=== PATIENT | female | born 1985 | race Caucasian/White ===

== ENCOUNTER → 2016-07-01 | Outpatient (REF) | payer OTHER ==
[~2016-07-01] MED LIST: LABE20TAB PO; PREN1TAB11 PO
== END ==
LOC: M LAB REF 16:22
PROVIDERS: ATTEND Neurological Surgery
DX: Z01.818 Encounter for other preprocedural examination (principal)

== ENCOUNTER → 2016-07-13 | Outpatient (CLI) | payer OTHER ==
[2016-07-13 11:12] LABS: INR 1.05
[2016-07-13 11:15] LABS: BASO % 0.7 % (0.0-1.0); EOS % 0.9 % (0.0-3.0); LARGE UNSTAINED CELL # 0.1 K/mm3 (0.0-0.4); LARGE UNSTAINED CELL % 1.6 % (0.0-4.0); LYMPH % 17.8 % (24.0-44.0); MEAN CORPUSCULAR HEMOGLOBIN 32.2 pg (27.0-33.0); MEAN CORPUSCULAR HGB CONC 34.4 g/dl (32.0-36.5); MEAN CORPUSCULAR VOLUME 93.6 fl (80.0-96.0); MONO # 0.4 K/mm3 (0.0-0.8); MONO % 7.3 % (0.0-5.0); NEUTROPHILS # 3.6 K/mm3 (1.8-7.7); NEUTROPHILS % 71.7 % (36.0-66.0); PLATELET COUNT, AUTOMATED 218 k/mm3 (150-450); RED CELL DISTRIBUTION WIDTH 12.8 % (11.5-14.5)
[2016-07-13 11:21] LABS: ALBUMIN 4.2 GM/DL (3.2-5.2); ALBUMIN/GLOBULIN RATIO 1.56 (1.00-1.93); ALKALINE PHOSPHATASE 42 U/L (45-117); ALT/SGPT 18 U/L (12-78); ANION GAP 7 MEQ/L (8-16); AST/SGOT 9 U/L (15-37); BILIRUBIN,TOTAL 0.6 MG/DL (0.2-1.0); BLOOD UREA NITROGEN 19 MG/DL (7-18); CARBON DIOXIDE LEVEL 29 MEQ/L (21-32); CHLORIDE LEVEL 103 MEQ/L (98-107); CREATININE FOR GFR 0.67 MG/DL (0.55-1.02); GLOMERULAR FILTRATION RATE > 60.0 (>60); GLUCOSE, FASTING 92 MG/DL (70-105); POTASSIUM SERUM 4.4 MEQ/L (3.5-5.1); SODIUM LEVEL 139 MEQ/L (136-145); TOTAL PROTEIN 6.9 GM/DL (6.4-8.2)
--- NOTE | 2016-07-14 02:58 | REP ---
Clinical: Preoperative assessment . Comparison: None . Technique: PA and lateral. Findings: The mediastinum and cardiac silhouette are normal. The lung ni are clear and without acute consolidation, effusion, or pneumothorax. The skeletal structures are intact and normal. Impression: 1. No acute cardiopulmonary process. Signed by Antolin Braden MD 07/14/2016 02:50 A
--- NOTE | 2016-07-14 18:33 | ECGEPIP ---
Stationary ECG Study [facility] Test Date: 2016-07-13 Pat Name: DAVIDE CLINE Department: Room: - Gender: F Cotton Tier: HARINI : 1985 Requested By: SHANNAN Sanders Order Number: [id number] Reading MD: Reid Bowie Measurements Intervals [place] Rate: 83 P: 9 OK: 151 QRS: 20 QRSD: 85 T: 36 QT: 358 QTc: 423 Interpretive Statements SINUS RHYTHM NO PRIOR TRACING Electronically Signed On 07-14-2016 18:32:45 EDT by Reid Bowie
== END ==
LOC: M LAB 10:08
PROVIDERS: ATTEND Neurological Surgery
DX: Z01.818 Encounter for other preprocedural examination (principal)

== ENCOUNTER → 2016-08-03 | Day surgery (SDC) | payer OTHER ==
[~2016-08-03] VITALS: Ht 160 cm; Wt 65.8 kg
[~2016-08-03] MED LIST changes: +BACITRACIN PWD 50,000 UNITS VIAL As Ordered ONE; +LIDOCAINE W/EPINEPHRINE 1% 20ML VIAL As Ordered ONE; +LR 1,000 ML IV SCH; +MIDAZOLAM INJ 2 MG/2 ML VIAL (J2250) As Ordered ONE; +MUCI600T34 PO; +NORCO, ANEXSIA 5/325MG TABLET (HYDROcodone/ACETAMINOPHEN) PO PRN; +ONDANSETRON 4MG/2ML VIAL (J2405) IV PRN; +PHENYLephrine HCL 500 MCG/5 ML (100MCG/ML) SYRINGE (J2370) As Ordered ONE; +PROPOFOL 200 MG/20 ML VIAL As Ordered ONE; +ZEST1TAB PO; +dexameTHASONE 4 MG/ML 1ML VIAL (J1100) IV ONE; +fentaNYL 100 MCG/2 ML INJECTION (J3010) As Ordered ONE; +fentaNYL 100 MCG/2 ML INJECTION (J3010) IV PRN; +methylPREDNISolone SUSP 40 MG/ML (DEPO-medrol) VIAL (J1030) As Ordered ONE
[2016-08-03 10:45] VITALS: BP 129/82
--- NOTE | 2016-08-04 09:05 | RO ---
DATE OF PROCEDURE: 08/03/2016 PREOPERATIVE DIAGNOSES: Left occipital mass/neurofibroma, occipital neuralgia. POSTPROCEDURE DIAGNOSES: Left occipital mass/neurofibroma, occipital neuralgia. PROCEDURE: Resection of left occipital mass, decompression of greater and lesser occipital nerves, distal greater occipital neurectomy. SURGEON: Dr. Lai Francis PARTS IDENTIFIER: None. ANESTHESIA: Local and paracentesis occipital block performed by myself and conscious sedation. FINDINGS: Please see office notes for detailed preoperative evaluation and discussions. 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 The lesion of interest today was in the left occipital region near the superior nuchal line at the lateral border of the trapezius. I has been causing severe relentless headaches and occipital neuralgia. Patient and her were seen in the preoperative area. There were no obvious changes in neurologic status observed. Patient was aware of all options, risk, scope, expected outcome, sequel and complications of the proposed procedure and she understood no guarantees of any kind could be given. The risk of surgery include but not limited to persistence or worsening of symptoms and/or deficits. No guarantees could be given of any kind including that of obtaining pathological diagnosis, patient understood this also included loss of any or all vital bodily functions, anesthesia dolorosa, atrophy of suboccipital and paraspinal muscles, permanent or indefinite numbness in the scalp, PE, DVT, and/or any catastrophic sequel. Once again, patient reported there is no way she can live with these symptoms and is willing to take any or all risks for any possible benefit. At her request, she was taken to the operating room after all matters pertaining to surgery, anesthesia and followup care had been discussed again with her and her . Once in the operating room, she was placed in a park bench position with the left side up. The area of surgery was prepped and draped in the usual sterile fashion. A skin incision was given just over the mass which at the superior nuchal line lateral border of trapezium and was carried inferiorly medially to the lateral C2 mass. Galeal and deep facial region incised. Cut edges of the blood vessels were coagulated with bipolar cautery. The deep fascia was opened. Distal branches of the lesser and greater occipital nerves were identified and they were stuck to this mass. There was dense fibrosis around the mass which though appeared to be quite stuck with the nerves, discrete relationship of it being a schwannoma could not be established. This could be a large lymph node, particularly in the presence of peritumoral fibrosis. The distal branches of the greater and lesser occiput were dissected and move away from the occipital vein and artery. They were also being compressed by the mass. The distal branches which were densely adherent to the mass were incised near the mass. Greater occipital neuroma then dissected free of scarring tissue around this fibrous canal and after the last motor branch, it was incised, segment of it along with the mass was sent for pathological examination. Blood loss was negligible. The wound was closed in anatomic layers. Patient tolerated the procedure well and was transferred to the outpatient area in stable condition. Operative findings were discussed with the patient's in the waiting room. They both had written and followup instructions. GRICEL
== END | disposition home or self-care (01) ==
LOC: M SDC 06:02
PROVIDERS: ATTEND Neurological Surgery
DX: Q85.09 Other neurofibromatosis (principal); M54.81 Occipital neuralgia; I10 Essential (primary) hypertension; R51 Headache; I73.00 Raynaud's syndrome without gangrene; Z88.5 Allergy status to narcotic agent; Z98.51 Tubal ligation status; Z87.42 Personal history of other diseases of the female genital tract
CPT/HCPCS: 64405; 64722; 64744; 64788; 88304; J0690; J1030; J1100; J2250; J2370; J3010

== ENCOUNTER → 2016-09-28 | Outpatient (REF) | payer OTHER ==
[~2016-09-28] MED LIST changes: -BACITRACIN PWD 50,000 UNITS VIAL As Ordered ONE; -LIDOCAINE W/EPINEPHRINE 1% 20ML VIAL As Ordered ONE; -LR 1,000 ML IV SCH; -MIDAZOLAM INJ 2 MG/2 ML VIAL (J2250) As Ordered ONE; -MUCI600T34 PO; +MUCI600T37 PO; -NORCO, ANEXSIA 5/325MG TABLET (HYDROcodone/ACETAMINOPHEN) PO PRN; -ONDANSETRON 4MG/2ML VIAL (J2405) IV PRN; -PHENYLephrine HCL 500 MCG/5 ML (100MCG/ML) SYRINGE (J2370) As Ordered ONE; -PROPOFOL 200 MG/20 ML VIAL As Ordered ONE; -dexameTHASONE 4 MG/ML 1ML VIAL (J1100) IV ONE; -fentaNYL 100 MCG/2 ML INJECTION (J3010) As Ordered ONE; -fentaNYL 100 MCG/2 ML INJECTION (J3010) IV PRN; -methylPREDNISolone SUSP 40 MG/ML (DEPO-medrol) VIAL (J1030) As Ordered ONE
== END ==
LOC: M LAB REF 16:55
PROVIDERS: ATTEND Otolaryngology
DX: Q85.00 Neurofibromatosis, unspecified (principal)

== ENCOUNTER → 2021-03-19 | Outpatient (CLI) | payer OTHER | LOC: M WHC 08:00 | PROVIDERS: ATTEND Family Medicine | DX: Z12.31 Encounter for screening mammogram for malignant neoplasm of breast (principal) ==

== ENCOUNTER → 2022-05-30 | Outpatient (CLI) | payer OTHER | LOC: M WHC 12:02 | PROVIDERS: ATTEND Family Medicine | DX: Z12.31 Encounter for screening mammogram for malignant neoplasm of breast (principal); Z53.9 Procedure and treatment not carried out, unspecified reason ==